=== PATIENT | female | born 1965 | race Caucasian/White ===

== ENCOUNTER 2020-01-03 16:00 | Emergency (ER) | payer OTHER, SELFPAY ==
--- NOTE | 2020-01-03 16:08 | XR_ITS ---
WS: [id number] Thoracic spine, 3 views, 01/03/2020 Clinical Data: injury Comparison: None. Findings: No compression fractures are seen. The disc heights are normal. Paravertebral areas are normal. XR/XR thoracic spine 3V* [id number] Impression: Negative thoracic spine.
--- NOTE | 2020-01-03 16:08 | XR_ITS ---
WS: [id number] Lumbar spine, 3 views, 01/03/2020 Clinical Data: injury Comparison: None. Findings: No compression fractures or subluxation is seen. No disc space narrowing is seen. The transverse proc esses and SI joints are normal. XR/XR lumbar spine 2-3V* [id number] Impression: Negative lumbar spine.
[2020-01-03 16:45] VITALS: BP 150/68; PULSE 94; RESP 18; TEMP 37.4; O2SAT 99; BMI 23.8
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
--- NOTE | 2020-01-03 17:34 | CTR_ITS ---
PROCEDURE INFORMATION: Exam: CT Lumbar Spine Without Contrast Exam date and time: 01/03/2020 5:42 PM Age: 54 years old Clinical indication: Low back pain; Additional info: Fall TECHNIQUE: Imaging protocol: Computed tomography images of the lumbar spine without contrast. Radiation optimization: All CT scans at this facility use at least one of these dose optimization techniques: automated exposure control; mA and/or kV adjustment per patient size (includes targeted exams where dose is matched to clinical indication); or iterative reconstruction. COMPARISON: CR XR lumbar spine 2-3V* [id number] 01/03/2020 5:20 PM RADIATION DOSE METRICS: Total DLP (mGy-cm): 1291.59 FINDINGS: Vertebrae: No acute fracture. Normal alignment. Discs/Spinal canal/Neural foramina: No significant disc protrusion. No severe spinal canal stenosis. No significant neural foraminal narrowing. Soft tissues: Unremarkable. CT/CT lumbar spine wo con* [id number] IMPRESSION: No acute findings. Radiation Dose CTDIVOL = (mGy): DLP = 1291.59 (mGy-cm)
[2020-01-03] MEDS: ondansetron 4 MG Tablet PO (20:27)
[2020-01-03 20:28] VITALS: RESP 18; O2SAT 99
[2020-01-03] MEDS: HYDROmorphone 1 mg/mL INJ 1 mL 2 MG IM (20:28)
--- NOTE | 2020-01-03 20:34 | PC.NURSE ---
pt only received 1 mg IM of hydromorphone IM, she refused 2nd mg at bedside.
[2020-01-03 21:07] VITALS: BP 119/79; PULSE 105; RESP 16; O2SAT 97
== END 2020-01-03 21:09 | disposition home or self-care (01) ==
PROVIDERS: Emergency Provider Emergency Medicine; PCP Family Medicine
DX: S30.0XXA Contusion of lower back and pelvis, initial encounter (principal); V87.8XXA Person injured in other specified noncollision transport accidents involving motor vehicle (traffic), initial encounter
CPT/HCPCS: 12345; 72072; 72100; 72131; 96372; 99282; 99283; J1170; Q0162

== ENCOUNTER 2020-04-18 14:02 | Emergency (ER) | payer OTHER, SELFPAY ==
[2020-04-18 14:04] VITALS: BP 131/94; PULSE 103; RESP 18; TEMP 36.4; O2SAT 98; BMI 24.7
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
[2020-04-18 14:15] VITALS: O2SAT 100
--- NOTE | 2020-04-18 14:20 | PC.NURSE ---
A/OX4, lungs CTA without cough, Abdomen soft with pain to right side, Bowel sounds x4.
[2020-04-18 14:30] VITALS: BP 132/72; PULSE 101; RESP 21; O2SAT 100
--- NOTE | 2020-04-18 14:31 | PC.NURSE ---
Pt to CT via stretcher with automation technologist. at bedside. Place 3 warm blankets on pt pt shaking, states nervous
[2020-04-18 14:40] LABS: Basophils % 0.6 %; Eosinophils # 0.1 10^3/uL (0.0-0.8); Eosinophils % 1.2 %; Hematocrit 41.3 % (37.0-47.0); Hemoglobin 13.1 g/dL (11.5-15.3); Lymphocytes # 3.8 10^3/uL (0.8-4.8); Lymphocytes % 56.7 %; Mean Corpuscular HGB Conc 31.7 g/dL (30.0-36.0); Mean Corpuscular Hemoglobin 27.5 pg (28.0-34.0); Mean Corpuscular Volume 86.8 fL (81-99); Mean Platelet Volume 11.1 fL (7.4-10.4); Monocytes # 0.4 10^3/uL (0.2-0.9); Monocytes % 5.8 %; Neutrophils # 2.37 10^3/uL (1.8-7.7); Neutrophils % 35.4 %; Nucleated Red Blood Cells % 0 %; Platelet Count 299 10^3/cmm (130-400); Red Blood Count 4.76 10^6/uL (4.1-5.3); Red Cell Distribution Width 12.5 % (12.1-15.1); White Blood Count 6.7 10^3/uL (4.0-10.0)
[2020-04-18] MEDS: iohexol 300 mg/mL 100 mL Btl IV (14:51)
[2020-04-18 15:11] VITALS: BP 140/42; PULSE 104; RESP 20; O2SAT 100
[2020-04-18 15:39] LABS: Alanine Aminotransferase 29 U/L (0-33); Alkaline Phosphatase 80 IU/L (35-105); Anion Gap 13.9 (5-19); Aspartate Amino Transferase 37 U/L (0-32); Blood Urea Nitrogen 11 mg/dL (6-20); Calcium 9.5 mg/dL (8.5-10.5); Carbon Dioxide 26 mmol/L (22-29); Chloride 102 mmol/L (98-107); Globulin 2.9 g/dL (1.3-4.6); Glomerular Filtration Rate 104.2 mL/min (90-130); Glucose 111 mg/dL (65-115); Osmolality Calculated 286 mOsm/kg (285-295); Potassium 3.9 mmol/L (3.5-5.1); Sodium 138 mmol/L (136-145); Total Bilirubin 0.2 mg/dL (0.15-1.2); Total Protein 6.9 g/dL (6.6-8.7)
[2020-04-18 15:40] VITALS: BP 122/76; PULSE 92; RESP 16; O2SAT 100
== END 2020-04-18 15:40 | disposition home or self-care (01) ==
PROVIDERS: Emergency Provider Emergency Medicine; Family Provider Family Medicine
DX: S13.4XXA Sprain of ligaments of cervical spine, initial encounter (principal); V89.2XXA Person injured in unspecified motor-vehicle accident, traffic, initial encounter
CPT/HCPCS: 12345; 70450; 71260; 72125; 74177; 80053; 85025; 99283; Q9967

== ENCOUNTER 2021-03-08 07:30 | Outpatient (CLI) | payer OTHER, SELFPAY ==
--- NOTE | 2021-03-08 07:38 | MM_ITS ---
WS: [id number] BILATERAL DIGITAL SCREENING MAMMOGRAPHY WITH CAD CLINICAL INFORMATION: SCREENING HISTORY: Screening mammogram. No current complaints. COMPARISON: [id number] TECHNIQUE: Bilateral CC and MLO views. FINDINGS: The breasts are composed of heterogeneous fibroglandular density tissue, which can limit the detectio n of small underlying mass lesions. No suspicious mass, asymmetry, calcifications, or architectural d istortion. No evidence of malignancy. A few punctate calcifications. MM/[place] [id number] IMPRESSION: BI-RADS: 2-Benign FOLLOW UP: 1 Year Follow-up Recommend return to annual screening mammography.
== END 2021-03-08 07:31 | disposition home or self-care (01) ==
LOC: RADSHAW 07:37
PROVIDERS: PCP Electrodiagnostic Medicine; Visit Provider Electrodiagnostic Medicine
DX: Z12.31 Encounter for screening mammogram for malignant neoplasm of breast (principal)
CPT/HCPCS: 77067

== ENCOUNTER → 2021-06-20 16:40 | Outpatient (BNVA) | payer OTHER, SELFPAY | PROVIDERS: PCP Electrodiagnostic Medicine; Visit Provider Nurse Practitioner Family | DX: Z20.822 Contact with and (suspected) exposure to COVID-19 (principal) | CPT/HCPCS: 87635 ==

== ENCOUNTER 2022-10-10 06:54 | Outpatient (CLI) | payer OTHER, SELFPAY ==
--- NOTE | 2022-10-10 | US_ITS ---
WS: [id number] pelv w/transvag [id number] HISTORY: PELVIC PAIN COMPARISON: 07/16/2016 Uterus: 6.2 cm x 3.6 cm x 2.4 cm. Normal size anteverted uterus. No fibroid or mass. Previously described fibroid in the posterior myom etrium is not visualized today. Endometrium: 0.3 cm. Normal. Neither ovary is identified. No adnexal masses. No free fluid. No free fluid in the cul-de-sac. US/US pelv w/transvag [id number] IMPRESSION: 1. Normal endometrium. 2. No uterine fibroid identified today. 3. Neither ovary is identified.
== END 2022-10-10 06:55 | disposition home or self-care (01) ==
LOC: RAD 06:57
PROVIDERS: PCP Electrodiagnostic Medicine; Visit Provider Nurse Practitioner Family
DX: R10.2 Pelvic and perineal pain (principal)
CPT/HCPCS: 76830; 76856

== ENCOUNTER 2023-03-27 07:45 | Outpatient (CLI) | payer OTHER, SELFPAY ==
--- NOTE | 2023-03-27 08:06 | MM_ITS ---
WS: [id number] BILATERAL SCREENING DIGITAL TOMOSYNTHESIS MAMMOGRAM WITH CAD HISTORY: SCREENING COMPARISON: 03/08/2021 and 09/29/2018 Bilateral CC and MLO views with tomosynthesis and synthetic mammography submitted. Computer aided det ection analyzed. Breast composition: The breasts are heterogeneously dense, which may obscure small masses. No suspici ous masses, microcalcifications or architectural distortion. IMPRESSION: MM/[place] [id number] BI-RADS: 1-Negative FOLLOW UP: 1 Year Follow-up
== END 2023-03-27 07:46 | disposition home or self-care (01) ==
PROVIDERS: PCP Electrodiagnostic Medicine; Visit Provider Electrodiagnostic Medicine
DX: Z12.31 Encounter for screening mammogram for malignant neoplasm of breast (principal)
CPT/HCPCS: 77063; 77067

== ENCOUNTER 2023-09-16 14:00 | Outpatient (CLI) | payer OTHER, SELFPAY | END 2023-09-16 14:01 | disposition home or self-care (01) | LOC: SLEEP 09-17 08:21 | PROVIDERS: PCP Electrodiagnostic Medicine; Visit Provider Electrodiagnostic Medicine | DX: G47.10 Hypersomnia, unspecified (principal) | CPT/HCPCS: G0399 ==

== ENCOUNTER 2023-11-15 12:38 | Outpatient (CLI) | payer OTHER, SELFPAY ==
--- NOTE | 2023-11-15 12:53 | MR_ITS ---
WS: [id number] MRI LUMBAR SPINE NONCONTRAST TECHNIQUE: Sagittal T1, T2 and STIR imaging. Axial T1 and T2 imaging. CLINICAL INFORMATION: RADICULOPATHY COMPARISON: None. FINDINGS: Mild lumbar curve. No acute compression. No high-grade central canal stenosis. L1-L2: Mild facet arthropathy. Spinal canal and foramen are patent. L2-L3: Slight retrolisthesis. Mild annular bulging. Tiny LEFT foraminal protrusion with mild LEFT for aminal narrowing. Spinal canal and RIGHT foramen are patent. Mild facet arthropathy. L3-L4: No significant disc bulging. Mild facet arthropathy. Spinal canal and foramen are patent. L4-L5: No significant disc bulging. Mild facet arthropathy. Spinal canal and foramen are patent. L5-S1: No significant disc bulging. Mild facet arthropathy. Spinal canal and foramen are patent. Visualized pelvic bony structures: Normal. Paravertebral soft tissues: Normal. MR/MR lumbar spine wo con* [id number] IMPRESSION: 1. Mild lumbar curve. No acute compression. No significant central canal steno sis. 2. Slight retrolisthesis L2 on L3 with a small LEFT foraminal protrusion and m ild LEFT foraminal narrowing. 3. Mild facet arthropathy L3-L5. 4. No other acute findings.
== END 2023-11-15 12:39 | disposition home or self-care (01) ==
LOC: RAD 12:39
PROVIDERS: PCP Electrodiagnostic Medicine; Visit Provider Electrodiagnostic Medicine
DX: M51.16 Intervertebral disc disorders with radiculopathy, lumbar region (principal)
CPT/HCPCS: 72148

== ENCOUNTER 2024-09-11 07:42 | Outpatient (CLI) | payer OTHER, SELFPAY ==
--- NOTE | 2024-09-11 07:53 | MM_ITS ---
WS: [id number] BILATERAL 3D TOMOSYNTHESIS DIGITAL SCREENING MAMMOGRAPHY WITH CAD CLINICAL INFORMATION: SCREENING HISTORY: Screening mammogram. No current complaints. COMPARISON: 2022 TECHNIQUE: Bilateral CC and MLO views. FINDINGS: The breasts are composed of heterogeneous fibroglandular density tissue, which can limit the detection of small underlying mass lesions. Partially obscured ovoid nodule. Near the 12 o'clock position LEFT breast measuring 2.1 cm. Recommend further evaluation with diagnostic mammography and ultrasound. RIGHT breast is unremarkable MM/MM [facility] tomosynthesis [id number] IMPRESSION: DENSITY: The breasts are heterogeneously dense, which may obscure small masses. BI-RADS: 0 - Incomplete: Need additional imaging evaluation FOLLOW UP: Need Additional Imaging Recommend LEFT breast diagnostic mammography and ultrasound
== END 2024-09-11 07:43 | disposition home or self-care (01) ==
LOC: RAD 07:44
PROVIDERS: PCP Electrodiagnostic Medicine; Visit Provider Electrodiagnostic Medicine
DX: Z12.31 Encounter for screening mammogram for malignant neoplasm of breast (principal); R92.333 Mammographic heterogeneous density, bilateral breasts; N63.25 Unspecified lump in the left breast, overlapping quadrants
CPT/HCPCS: 77063; 77067

== ENCOUNTER 2024-10-12 13:20 | Outpatient (CLI) | payer OTHER, SELFPAY ==
--- NOTE | 2024-10-12 13:28 | MM_ITS ---
WS: [id number] LEFT 3D TOMOSYNTHESIS DIGITAL MAMMOGRAPHY WITH CAD CLINICAL INFORMATION: ABNORMAL MAMMO HISTORY: Additional views COMPARISON: 09/11/2024 TECHNIQUE: 3 views of the left breast were obtained. FINDINGS: The left breast is composed of heterogeneous fibroglandular density tissue, which can limit the detection of small underlying mass lesions. Again seen is a partially obscured 2.1 cm ovoid nodule near the 12 o'clock position. This partially compresses else but is persistent. Ultrasound is pending. ULTRASOUND BREAST LEFT TECHNIQUE: Ultrasound left breast focused area of concern. CLINICAL INFORMATION: ABNORMAL MAMMO FINDINGS: Ultrasound LEFT breast near the 12 o'clock position. In the area of concern, there is a cyst measuring approximately 1.9 x 2.6 x 1.1 cm corresponding to the mammographic findings. This has a benign appearance. No other suspicious abnormalities. MM/MM diag LT tomosynthesis [id number] IMPRESSION: DENSITY: The breasts are heterogeneously dense, which may obscure small masses. BI-RADS: 2 - Benign FOLLOW UP: 1 Year Follow-up Recommend return to annual screening mammography.
== END 2024-10-12 13:21 | disposition home or self-care (01) ==
LOC: RAD 13:22
PROVIDERS: PCP Electrodiagnostic Medicine; Visit Provider Electrodiagnostic Medicine
DX: R92.8 Other abnormal and inconclusive findings on diagnostic imaging of breast (principal); R92.332 Mammographic heterogeneous density, left breast; N60.02 Solitary cyst of left breast
CPT/HCPCS: 76642; 77061; G0279

== ENCOUNTER 2024-12-22 15:28 | Outpatient (CLI) | payer OTHER, SELFPAY ==
--- NOTE | 2024-12-22 15:30 | CT_ITS ---
WS: [id number] CT NECK WITH CONTRAST HISTORY: OTALGIA, left-sided. TECHNIQUE: Contiguous 2 mm axial images are performed through the neck with intravenous contrast. Sagittal and coronal reformats are also submitted. All CT scans at [facility] use at least one of these dose optimization techniques: automated exposure control; mA and/or kV adjustment per patient size (includes targeted exams where dose is matched to clinical indication); or iterative reconstruction. CONTRAST: CONTRAST: Omnipaque 350; 100 mL IV. DLP: 158.01 mGy.cm COMPARISON: C-spine CT 04/18/2020 Nasopharynx, oropharynx, hypopharynx and larynx are unremarkable. No soft tissue masses or abnormal enhancement. Torus tubarius and fossa of Rosenmuller and parapharyngeal fat are normal. Small bilateral cervical chain lymph nodes. No pathologically enlarged nodes. Mildly heterogeneous thyroid. Parotid glands and submandibular glands are negative. No osseous abnormalities. Visualized portions of the skull base demonstrate no abnormalities. Orbits and globes are within normal limits. No soft tissue masses. Visualized paranasal sinuses and mastoid air cells are normal. Lung apices are clear. CT/CT neck w con* [id number] IMPRESSION: Unremarkable neck CT. No abnormality along the eustachian tubes or torus tubarius.
[2024-12-22] MEDS: iohexol 350 mg/mL 500 mL Btl (per mL) IV (15:55)
== END 2024-12-22 15:29 | disposition home or self-care (01) ==
LOC: RAD 15:29
PROVIDERS: PCP Electrodiagnostic Medicine; Visit Provider Specialist
DX: R94.6 Abnormal results of thyroid function studies (principal); Z86.69 Personal history of other diseases of the nervous system and sense organs; R59.0 Localized enlarged lymph nodes
CPT/HCPCS: 70491